=== PATIENT | female | born 1970 | race Caucasian/White ===

== ENCOUNTER 2017-04-20 18:57 | Emergency (ER) | payer OTHER ==
[~2017-04-20] VITALS: Ht 175.3 cm; Wt 141.4 kg
[~2017-04-20 18:57] MED LIST: ADIPEX-P37.5 MG PO; ALBUTEROL S2.5 MG/.5 IN; ALBUTEROL0.5 % IN; ASPIR-8181 MG OR; AVELOX400 MG OR; BABY ASPIRIN81 MG OR; BENADRYL25 M1 OR; CHOLESTEROL PILL; CLINDAMYCIN300 M1 OR; DICLOFENAC75 MG OR; FENOFIBRATE160 MG PO; HYCOTUSS EXP1 ML OR; K-DUR/KLOR-CON10 MEQ OR; KLOR-CON 1010 MEQ PO; LASIX 20 MG TAB20 MG PO; LASIX20 MG OR; LASIX40 MG OR; LEVOTHROID100 MCG PO; LEVOTHROID137 MCG OR; LEVOTHYROXIN150 MCG PO; LEVOTHYROXIN25 MCG PO; LEVOTHYROXIN88 MCG PO; LORTAB 5 OR; LORTAB 7.5 OR; LORTAB5 PO; MEDDOSEPAK OR; MEDDOSEPAK PO; METOPROLOL50 MG OR; NAPROSYN500 MG PO; NIACIN500 M1 OR; PEPCID20 MG OR; PHENERGAN25 MG/TAB PO; PHENTERMINE30 MG OR; PROAIR HFA IN; PROVENTIL HFA IN; PYRIDIUM200 MG PO; RANITIDINE150 MG OR; ROBITUSS11 OR; SEA-OMEGA500 MG OR; SYNTHROID175 MCG OR; SYNTHROID50 MCG OR; TAM75CAP PO; TESSALON PER100 MG OR; TRIAMCINOLON0.11 EX; TRIGLIDE160 MG PO; ULTRAM50 MG OR; VALIUM5 MG OR; VENLAFAXINE37.5 MG OR; VENTOLIN HFA IN; ZITHROMAX250 MG PO; ZOFRAN ODT4 MG OR; ZOFRAN4 MG/TAB PO; ZPAK OR; ZPAK PO; [UNRECOGNIZED DRUG - REMARK]
[2017-04-20 20:10] LABS: HEMATOCRIT 44.6 % (37.0-47.0); HEMOGLOBIN 14.6 g/dl (12.0-16.0); IMMATURE GRANULOCYTES 0.5 % (0.0-1.0); MEAN CELL VOLUME 86.9 fL CALC (80.0-100.0); MEAN CORPUSCULAR HGB 28.5 pG CALC (26.0-32.0); MEAN CORPUSCULAR HGB CONC 32.7 g/L CALC (32.0-36.0); NEUT# 13.76 thou/uL (2.00-7.15); RED BLOOD COUNT 5.13 mill/uL (4.20-5.60); RED CELL DISTRI WIDTH 13.1 % (11.5-15.5)
[2017-04-20 20:12] LABS: URINE BILIRUBIN - DIPSTICK NEGATIVE (NEGATIVE); URINE BLOOD DIPSTICK SMALL (NEGATIVE); URINE COLOR YELLOW; URINE GLUCOSE - DIPSTICK NEGATIVE (NEGATIVE); URINE KETONE NEGATIVE (NEGATIVE); URINE LEUK ESTERASE NEGATIVE (NEGATIVE); URINE NITRITE - DIPSTICK NEGATIVE (Negative); URINE PROTEIN - DIPSTICK NEGATIVE (NEG-TRACE); URINE SPECIFIC GRAVITY >=1.030; URINE UROBILINOGEN - DIPSTICK 0.2 E.U./dL (0.2)
[2017-04-20 20:22] LABS: URINE CLARITY CLEAR
[2017-04-20 20:31] LABS: ALBUMIN 4.2 g/dL (3.2-5.0); ALKALINE PHOSPHATASE 95 u/l (38-126); AMYLASE < 30 u/l (30-110); ANION GAP 20 (6-22 (CALC)); BILIRUBIN, TOTAL 0.9 mg/dL (0.0-1.4); BUN 10 mg/dL (7-17); BUN/CREATININE RATIO 11 (12-20 (CALC)); CALCIUM 9.2 mg/dL (8.4-10.2); CARBON DIOXIDE 22 mmol/l (22-30); CHLORIDE 103 mmol/l (95-108); CREATININE 0.9 mg/dL (0.5-1.0); GFR > 60 ML/MIN (>=60 (CALC)); GFR FOR AFR.AMER. > 60 ML/MIN (>=60 (CALC)); GLUCOSE 159 mg/dL (65-105); LIPASE 52 u/l (23-300); POTASSIUM 4.3 mmol/l (3.5-5.1); SGOT/AST 29 u/l (14-36); SGPT/ALT 52 u/l (9-52); SODIUM 140 mmol/l (137-146); TOTAL PROTEIN 7.4 g/dL (6.3-8.2)
[2017-04-20 20:33] LABS: URINE SQUAMOUS EPITHELIAL CELL FEW EPI/hpf (0-FEW); URINE WBC 0-2 WBC/hpf (0-5)
[2017-04-20] MEDS ORDERED: ZOFRAN ODT4 MG PO (23:11)
[2017-04-20 23:25] VITALS: BP 102/61
== END 2017-04-20 23:30 | disposition home or self-care (01) | DRG 392 ==
LOC: ED 18:57
PROVIDERS: Emergency Medicine
DX: K52.9 Noninfective gastroenteritis and colitis, unspecified (principal); R10.9 Unspecified abdominal pain; R50.9 Fever, unspecified; R11.2 Nausea with vomiting, unspecified
CPT/HCPCS: S0164

== ENCOUNTER 2017-08-07 14:08 | Emergency (ER) | payer SELFPAY ==
[~2017-08-07] VITALS: Ht 175.3 cm; Wt 136.0 kg
[~2017-08-07 14:08] MED LIST changes: +ZOFRAN ODT4 MG PO
[2017-08-07] MEDS ORDERED: CLINDAMYCIN300 M1 PO (15:04)
[2017-08-07 15:05] VITALS: BP 138/80
[2017-08-07] MEDS ORDERED: MOTRIN400 MG PO (15:12)
== END 2017-08-07 15:05 | disposition home or self-care (01) | DRG 159 ==
LOC: ED 14:08
DX: K08.89 Other specified disorders of teeth and supporting structures (principal); R22.0 Localized swelling, mass and lump, head

== ENCOUNTER 2018-04-21 16:58 | Emergency (ER) | payer SELFPAY ==
[~2018-04-21] VITALS: Ht 177.8 cm; Wt 136.4 kg
[~2018-04-21 16:58] MED LIST changes: +CLINDAMYCIN300 M1 PO; +MOTRIN400 MG PO
[2018-04-21 17:33] LABS: HEMATOCRIT 42.2 % (37.0-47.0); HEMOGLOBIN 13.8 g/dl (12.0-16.0); IMMATURE GRANULOCYTES 0.4 % (0.0-5.0); MEAN CELL VOLUME 86.3 fL CALC (80.0-100.0); MEAN CORPUSCULAR HGB 28.2 pG CALC (26.0-32.0); MEAN CORPUSCULAR HGB CONC 32.7 g/L CALC (32.0-36.0); NEUT# 7.06 thou/uL (2.00-7.15); RED BLOOD COUNT 4.89 mill/uL (4.20-5.60); RED CELL DISTRI WIDTH 13.2 % (11.5-15.5)
[2018-04-21 17:49] LABS: ALBUMIN 3.5 g/dL (3.2-5.0); ALKALINE PHOSPHATASE 76 u/l (38-126); ANION GAP 12 (6-22 (CALC)); BILIRUBIN, TOTAL 0.5 mg/dL (0.0-1.4); BUN 18 mg/dL (7-17); BUN/CREATININE RATIO 24 (12-20 (CALC)); CARBON DIOXIDE 25 mmol/l (22-30); CHLORIDE 106 mmol/l (95-108); CREATININE 0.7 mg/dL (0.5-1.0); GFR > 60 ML/MIN (>=60 (CALC)); GFR FOR AFR.AMER. > 60 ML/MIN (>=60 (CALC)); POTASSIUM 4.3 mmol/l (3.5-5.1); SGOT/AST 21 u/l (14-36); SODIUM 138 mmol/l (137-146); TOTAL PROTEIN 6.4 g/dL (6.3-8.2)
[2018-04-21] MEDS ORDERED: ZITHROMAX250 MG PO (18:18)
[2018-04-21] MEDS ORDERED: TORADOL PO (18:18)
[2018-04-21] MEDS ORDERED: PROVENTIL108 MCG/AC IN (18:18)
[2018-04-21 18:43] VITALS: BP 131/61
== END 2018-04-21 18:50 | disposition home or self-care (01) | DRG 153 ==
LOC: ED 16:58
PROVIDERS: Emergency Medicine
DX: J06.9 Acute upper respiratory infection, unspecified (principal); J40 Bronchitis, not specified as acute or chronic; R06.02 Shortness of breath; R05 Cough

== ENCOUNTER 2019-02-04 18:50 | Emergency (ER) | payer SELFPAY ==
[~2019-02-04] VITALS: Ht 177.8 cm; Wt 148.0 kg
[~2019-02-04 18:50] MED LIST changes: +PROVENTIL108 MCG/AC IN; +TORADOL PO
[2019-02-04] MEDS ORDERED: GLIPIZIDE10 MG PO (19:26)
[2019-02-04] MEDS ORDERED: LEVOTHYROXIN75 MCG PO (19:27)
[2019-02-04] MEDS ORDERED: JANUVIA100 MG PO (19:27)
[2019-02-04] MEDS ORDERED: COZAAR50 MG PO (19:27)
[2019-02-04] MEDS ORDERED: TESSALON PERLE100 MG PO (20:20)
[2019-02-04] MEDS ORDERED: ZPAK PO (20:20)
[2019-02-04 20:24] VITALS: BP 123/70
== END 2019-02-04 20:25 | disposition home or self-care (01) | DRG 153 ==
LOC: ED 18:50
DX: J06.9 Acute upper respiratory infection, unspecified (principal); J02.9 Acute pharyngitis, unspecified; E11.9 Type 2 diabetes mellitus without complications; E03.9 Hypothyroidism, unspecified; J44.9 Chronic obstructive pulmonary disease, unspecified

== ENCOUNTER 2019-12-30 15:13 | Emergency (ER) | payer SELFPAY ==
[~2019-12-30] VITALS: Ht 177.8 cm; Wt 140.0 kg
[~2019-12-30 15:13] MED LIST changes: +COZAAR50 MG PO; +GLIPIZIDE10 MG PO; +JANUVIA100 MG PO; +LEVOTHYROXIN75 MCG PO; +TESSALON PERLE100 MG PO
[2019-12-30] MEDS ORDERED: LEVOTHYROXIN100 MC1 PO (15:36)
[2019-12-30] MEDS ORDERED: GLIPIZIDE XL10 MG PO (15:36)
[2019-12-30] MEDS ORDERED: VICTOZA18 MG/3 ML SC (15:40)
[2019-12-30 15:52] LABS: URINE BILIRUBIN - DIPSTICK NEGATIVE (NEGATIVE); URINE BLOOD DIPSTICK NEGATIVE (NEGATIVE); URINE COLOR YELLOW; URINE GLUCOSE - DIPSTICK NEGATIVE (NEGATIVE); URINE KETONE NEGATIVE (NEGATIVE); URINE LEUK ESTERASE TRACE (NEGATIVE); URINE NITRITE - DIPSTICK NEGATIVE (Negative); URINE PH 5.5 (4.5-8.0); URINE PROTEIN - DIPSTICK NEGATIVE (NEG-TRACE); URINE SPECIFIC GRAVITY 1.025; URINE UROBILINOGEN - DIPSTICK 0.2 E.U./dL (0.2)
[2019-12-30] MEDS ORDERED: MACROBID100 MG PO (16:03)
[2019-12-30] MEDS ORDERED: PYRIDIUM200 MG PO (16:03)
[2019-12-30 16:06] VITALS: BP 152/88
== END 2019-12-30 16:06 | disposition home or self-care (01) | DRG 690 ==
LOC: ED 15:13
PROVIDERS: Emergency Medicine
DX: N39.0 Urinary tract infection, site not specified (principal); E11.9 Type 2 diabetes mellitus without complications; E03.9 Hypothyroidism, unspecified; J44.9 Chronic obstructive pulmonary disease, unspecified; B96.20 Unspecified Escherichia coli [E. coli] as the cause of diseases classified elsewhere; Z87.440 Personal history of urinary (tract) infections; Z87.442 Personal history of urinary calculi

== ENCOUNTER 2020-05-27 18:48 | Emergency (ER) | payer SELFPAY ==
[~2020-05-27] VITALS: Ht 180.3 cm; Wt 136.4 kg
[~2020-05-27 18:48] MED LIST changes: +GLIPIZIDE XL10 MG PO; +LEVOTHYROXIN100 MC1 PO; +MACROBID100 MG PO; +VICTOZA18 MG/3 ML SC
[2020-05-27] MEDS ORDERED: ZPAK PO (19:39)
[2020-05-27] MEDS ORDERED: MEDDOSEPAK PO (19:39)
[2020-05-27 20:43] VITALS: BP 147/80
== END 2020-05-27 20:43 | disposition home or self-care (01) | DRG 153 ==
LOC: ED 18:48
DX: J32.9 Chronic sinusitis, unspecified (principal); E11.9 Type 2 diabetes mellitus without complications; E03.9 Hypothyroidism, unspecified; J44.9 Chronic obstructive pulmonary disease, unspecified; Z79.84 Long term (current) use of oral hypoglycemic drugs; Z20.822 Contact with and (suspected) exposure to COVID-19

== ENCOUNTER 2021-04-21 08:06 | Observation (INO) | payer SELFPAY ==
[~2021-04-21] VITALS: Ht 177.8 cm; Wt 141.0 kg
[2021-04-21 08:50] LABS: HEMATOCRIT 45.7 % (37.0-47.0); HEMOGLOBIN 14.7 g/dl (12.0-16.0); IMMATURE GRANULOCYTES 0.2 % (0.0-5.0); MEAN CELL VOLUME 86.9 fL CALC (80.0-100.0); MEAN CORPUSCULAR HGB 27.9 pG CALC (26.0-32.0); MEAN CORPUSCULAR HGB CONC 32.2 g/dL CAL (32.0-36.0); NEUT# 3.95 thou/uL (2.00-7.15); RED BLOOD COUNT 5.26 mill/uL (4.20-5.60); RED CELL DISTRI WIDTH 13.5 % (11.5-15.5)
[2021-04-21 09:25] LABS: ALBUMIN 3.8 g/dL (3.2-5.0); ALKALINE PHOSPHATASE 73 u/l (38-126); ANION GAP 14 (6-22 (CALC)); BUN 16 mg/dL (7-17); BUN/CREATININE RATIO 20 (12-20 (CALC)); CARBON DIOXIDE 24 mmol/l (22-30); CHLORIDE 102 mmol/l (95-108); CREATININE 0.8 mg/dL (0.5-1.0); GFR > 60 ML/MIN (>=60 (CALC)); GFR FOR AFR.AMER. > 60 ML/MIN (>=60 (CALC)); POTASSIUM 4.2 mmol/l (3.5-5.1); SODIUM 137 mmol/l (137-146); TOTAL PROTEIN 7.5 g/dL (6.3-8.2)
[2021-04-21 09:26] LABS: BILIRUBIN, TOTAL 0.9 mg/dL (0.0-1.4); SGOT/AST 40 u/l (14-36)
[2021-04-21 15:00] VITALS: BP 132/79
[2021-04-21 19:00] VITALS: BP 104/59
[2021-04-22] VITALS: BP 98/64
[2021-04-22 04:00] VITALS: BP 97/66
[2021-04-22 06:14] LABS: HEMATOCRIT 40.4 % (37.0-47.0); HEMOGLOBIN 13.4 g/dl (12.0-16.0); MEAN CELL VOLUME 85.4 fL CALC (80.0-100.0); MEAN CORPUSCULAR HGB 28.3 pG CALC (26.0-32.0); MEAN CORPUSCULAR HGB CONC 33.2 g/dL CAL (32.0-36.0); RED BLOOD COUNT 4.73 mill/uL (4.20-5.60); RED CELL DISTRI WIDTH 13.1 % (11.5-15.5)
[2021-04-22 06:21] LABS: ANION GAP 14 (6-22 (CALC)); BUN 15 mg/dL (7-17); BUN/CREATININE RATIO 24 (12-20 (CALC)); CARBON DIOXIDE 21 mmol/l (22-30); CHLORIDE 106 mmol/l (95-108); CREATININE 0.6 mg/dL (0.5-1.0); GFR > 60 ML/MIN (>=60 (CALC)); GFR FOR AFR.AMER. > 60 ML/MIN (>=60 (CALC)); MAGNESIUM 2.1 mg/dL (1.6-2.3); POTASSIUM 4.6 mmol/l (3.5-5.1); SODIUM 136 mmol/l (137-146)
[2021-04-22 10:30] VITALS: BP 140/84
[2021-04-22] MEDS ORDERED: OMNICEF300 MG PO (12:27)
[2021-04-22] MEDS ORDERED: ZITHROMAX250 MG PO (12:27)
[2021-04-22] MEDS ORDERED: PREDNISONE20 MG PO (12:28)
== END 2021-04-22 13:10 | disposition home or self-care (01) | DRG 190 ==
LOC: ED 08:06 → ED-I 08:56 → ED 10:04 → MS2 10:05
PROVIDERS: Family Medicine; Nurse Practitioner; ADMIT Hospitalist; ATTEND Hospitalist
DX: J44.1 Chronic obstructive pulmonary disease with (acute) exacerbation (principal); J18.9 Pneumonia, unspecified organism; J44.0 Chronic obstructive pulmonary disease with (acute) lower respiratory infection; Z68.41 Body mass index [BMI] 40.0-44.9, adult; I10 Essential (primary) hypertension; E11.9 Type 2 diabetes mellitus without complications; E66.01 Morbid (severe) obesity due to excess calories; E03.9 Hypothyroidism, unspecified; Z79.84 Long term (current) use of oral hypoglycemic drugs; Z77.22 Contact with and (suspected) exposure to environmental tobacco smoke (acute) (chronic); Z88.0 Allergy status to penicillin; Z20.822 Contact with and (suspected) exposure to COVID-19
CPT/HCPCS: G0378; J1650